=== PATIENT | female | born 1960 | race Caucasian/White ===

== ENCOUNTER 2020-02-05 03:25 | Emergency (ER) | payer SELFPAY ==
[~2020-02-05] VITALS: Ht 154.9 cm; Wt 61.2 kg
[2020-02-05 04:10] VITALS: BP 188/85
== END 2020-02-05 05:04 | disposition home or self-care (01) ==
LOC: ER 03:25
DX: R42 Dizziness and giddiness (principal); I10 Essential (primary) hypertension; E11.9 Type 2 diabetes mellitus without complications
CPT/HCPCS: 93005; 99283